=== PATIENT | female | born 1965 | race Two or more races ===

== ENCOUNTER 2018-04-27 11:52 | Emergency (ER) | payer MEDICAID ==
[~2018-04-27] VITALS: Ht 147.3 cm; Wt 54.0 kg
[2018-04-27 12:07] VITALS: Ht 147.3 cm; Wt 54.0 kg
[2018-04-27 13:08] LABS: UA SPECIFIC GRAVITY >=1.030 (1.005-1.035); microscopic required? YES; urine erythrocyte 2+ (NEGATIVE)
[2018-04-27 13:10] LABS: BASOPHIL % 0.4 % (0-2); PLATELET COUNT 261 x10^3mcL (130-400)
[2018-04-27 13:25] LABS: CALCIUM 8.9 mg/dL (8.5-10.1); CARBON DIOXIDE 27.6 mmol/L (21-32); CHLORIDE SERUM 99 mmol/L (98-107); GFR1 > 60 mL/min; GLUCOSE SERUM 271 mg/dL (74-106); POTASSIUM SERUM 3.5 mmol/L (3.5-5.1); SODIUM SERUM 136 mmol/L (136-145)
[2018-04-27 13:38] LABS: ALBUMIN 3.6 g/dL (3.4-5.0); ALKALINE PHOSPHATASE 102 U/L (46-116); ALT/SGPT 20 U/L (14-59); AMYLASE 41 U/L (25-115); AST/SGOT 17 U/L (15-37); BILIRUBIN TOTAL 0.47 mg/dL (0.20-1.00); HDL CHOLESTEROL 53 mg/dL (40-60); LIPASE 149 IU/L (73-393); T4(THYROXINE) 7.1 ug/dL (4.7-13.3); TOTAL PROTEIN, SERUM 8.2 g/dL (6.4-8.2)
[2018-04-27 13:41] LABS: CHOLESTEROL 245 mg/dL (<200)
[2018-04-27 14:36] VITALS: BP 128/74
== END 2018-04-27 14:36 | disposition home or self-care (01) ==
LOC: ED 11:52
PROVIDERS: Emergency Medicine
DX: J10.1 Influenza due to other identified influenza virus with other respiratory manifestations (principal); J98.01 Acute bronchospasm; E11.65 Type 2 diabetes mellitus with hyperglycemia; Z90.89 Acquired absence of other organs; Z98.890 Other specified postprocedural states
CPT/HCPCS: 82962; 87804; J1815; J7030